=== PATIENT | female | born 1960 | race Caucasian/White ===

== ENCOUNTER → 2017-02-07 | Outpatient (POV) | LOC: OUTPT 00:01 | PROVIDERS: ATTEND Otolaryngology | DX: H91.90 Unspecified hearing loss, unspecified ear (principal) | CPT/HCPCS: 92557; 92567 ==

== ENCOUNTER 2017-06-19 10:11 | Emergency (ER) ==
[2017-06-19 10:20] VITALS: TEMP 98.3; BMI 29.0
[2017-06-19 10:29] VITALS: BP 143/88
[2017-06-19] MEDS ORDERED: EYE-STREAM OP STA (10:34)
[2017-06-19] MEDS ORDERED: FLUORETS OP STA (10:34)
[2017-06-19] MEDS ORDERED: TETRACAINE 0.5% OPTH SOL OP STA (10:35)
[2017-06-19] MEDS ORDERED: TETRACAINE 0.5% UNIT-DOSE OP ONE (10:44)
[2017-06-19] MEDS ORDERED: TETRACAINE 0.5% UNIT-DOSE OP STA (10:56)
[2017-06-19] MEDS ORDERED: TOBREX 0.3% OP STA (10:58)
--- NOTE | 2017-06-19 10:58 | ED.PDOC ---
General ED Provider: Dr. ARIC RIBEIRO Chief Complaint: Eye Problem Stated Complaint: EYE PAIN F/B SENSATION Time Seen by Physician: 10:56 Mode of Arrival: Walk-In Information Source: Patient Exam Limitations: No limitations Primary Care Provider: NASRIN ALDRIDGE Nursing and Triage Documentation Reviewed and Agree: Yes EENT Complaint Exam - Eye Complaint/Exam Onset/Duration: 1 DAY AGO Symptoms Are: Still present Timing: Constant Initial Severity: Mild Current Severity: Mild Location: Left Character: Reports: Dull Aggravating: Reports: Light Alleviating: Reports: None Associated Signs and Symptoms: Reports: Photophobia, Clear drainage. Denies: Purulent drainage, Vision impairment, Fever, Swelling Eye Surgical History: Reports: None Penetrating Injury Risk Factors: None Globe Rupture Risk Factors: None Acute Glaucoma Risk Factors: None Optic Artery Occlusion Risk Factors: None Visual Acuity Right Eye: 20/20 with glasses Visual Acuity Left Eye: 20/20 with glasses Visual Field: Normal Extraocular Movement: Normal Orbit Findings: Normal Globe Findings: Intact Lid Findings: Normal Corneal Findings: Clear Fluorescein Uptake: Yes (12 TO 6 OCLOCK) Fundi: Normal Differential Diagnoses: Corneal Abrasion Review of Systems - Review Of Systems Constitutional: Reports: No symptoms Eyes: Reports: Pain (EYE RIGHT) Ears, Nose, Mouth, Throat: Reports: No symptoms Respiratory: Reports: No symptoms Cardiac: Reports: No symptoms GI: Reports: No symptoms : Reports: No symptoms Musculoskeletal: Reports: No symptoms Skin: Reports: No symptoms Neurological: Reports: No symptoms Endocrine: Reports: No symptoms Hematologic/Lymphatic: Reports: No symptoms All Other Systems: Reviewed and Negative Past Medical History - Past Medical History Previously Healthy: Yes Endocrine: Reports: None Cardiovascular: Reports: None Respiratory: Reports: None Hematological: Reports: None Gastrointestinal: Reports: None Genitourinary: Reports: None Neuro/Psych: Reports: None Musculoskeletal: Reports: None Cancer: Reports: None Last Menstrual Period: 6 years - Surgical History General Surgical History: Reports: None - Family History Family History: Reports: None - Social History Smoking Status: Never smoker Hx Substance Use: No Alcohol Screening: Occasionally - Immunizations Tetanus Shot up to Date: Yes Physical Exam - Physical Exam Appearance: Well-appearing, No pain distress, Well-nourished Eyes: GUERLINE, EOMI (CORNEAL BRASION NOTED KLEFT SIDE LID EVERSION NO F/B) ENT: Ears normal, Nose normal, Oropharynx normal Respiratory: Airway patent, Breath sounds clear, Breath sounds equal, Respirations nonlabored Cardiovascular: RRR, Pulses normal, No rub, No murmur GI/: Soft, Nontender, No masses, Bowel sounds normal, No Organomegaly Musculoskeletal: Normal strength, ROM intact, No edema, No calf tenderness Skin: Warm, Dry, Normal color Neurological: Sensation intact, Motor intact, Reflexes intact, Cranial nerves intact, Alert, Oriented Psychiatric: Affect appropriate, Mood appropriate Critical Care Note - Critical Care Note Total Time (mins): 0 Course - Course Orders, Labs, Meds: Orders Category Date Time Status Balanced Salt Solution [Eye-Stream] MEDS 06/19/17 10:34 Discontinued 1 bottle OP ONCE STA Fluorescein Sodium [Fluorets] MEDS 06/19/17 10:34 Discontinued 1 strip OP ONCE STA Tetracaine HCl [Tetracaine 0.5% Opth Arlene] MEDS 06/19/17 10:35 Discontinued 2 drop OP ONCE STA Tetracaine HCl/Pf [Tetracaine 0.5% Unit-Dose] MEDS 06/19/17 10:44 Discontinued 1 drop OP .STK-MED ONE Medications Discontinued Medications Generic Name Dose Route Start Last Admin Trade Name Freq PRN Reason Stop Dose Admin Eye Irrigation Solution 1 bottle 06/19/17 10:34 Eye-Stream OP 06/19/17 10:35 ONCE STA Fluorescein Sodium 1 strip 06/19/17 10:34 Fluorets OP 06/19/17 10:35 ONCE STA Tetracaine HCl 2 drop 06/19/17 10:35 Tetracaine 0.5% Opth Arlene OP 06/19/17 10:36 ONCE STA Vital Signs: Temp Pulse Resp BP Pulse Ox 06/19/17 10:27 143/88 H 06/19/17 10:11 98.3 F 82 18 162/103 H 95 Departure - Departure Time of Disposition: 10:59 (DOCTOR BRUSH WILL SEE PT 1 PM) Disposition: HOME SELF-CARE Discharge Problem: Corneal abrasion, left Qualifiers: Encounter type: initial encounter Qualified Code(s): S05.02XA - Injury of conjunctiva and corneal abrasion without foreign body, left eye, initial encounter Instructions: Corneal Abrasion (ED) Condition: Good Pt referred to PMD for follow-up: Yes (G BRUSH 1 PM) Additional Instructions: Please call your Family Physician as soon as possible to schedule a follow-up appointment. Allergies/Adverse Reactions: Allergies No Known Allergies Allergy (Unverified 06/19/17 10:21) Home Medications: Ambulatory Orders Citalopram Hydrobromide [Celexa] 40 mg PO DAILY #1 tab-cap 02/07/17 Alprazolam 1 ea PO DAILY 06/19/17 Aspirin [Aspirin EC] 325 mg PO DAILYWM 06/19/17 Atorvastatin Calcium 40 mg PO DAILY 06/19/17 Carvedilol 6.25 mg PO BID 06/19/17 Multivitamin 1 each PO DAILY 06/19/17 Tramadol HCl 50 mg PO BID 06/19/17 Trazodone HCl 1 ea PO DAILY 06/19/17 Disposition Discussed With: Patient, Family
== END 2017-06-19 11:22 | disposition home or self-care (01) ==
LOC: ED 10:11
DX: S05.02XA Injury of conjunctiva and corneal abrasion without foreign body, left eye, initial encounter (principal)
CPT/HCPCS: 99282

== ENCOUNTER 2017-06-21 12:21 | Outpatient (CLI) ==
[2017-06-21 12:48] LABS: BASOPHILS # (AUTO) 0.1 K/uL (0-0.2); EOSINOPHILS # (AUTO) 0.4 K/ul (0.0-0.7); EOSINOPHILS % (AUTO) 6.4 % (0.0-7.0); HEMOGLOBIN 13.9 g/dl (12.0-16.0); IMMATURE GRANULOCYTE % (AUTO) 0.3 % (0.0-5.0); LYMPHOCYTES % (AUTO) 35.1 (10.0-50.0); MEAN CORPUSCULAR HEMOGLOBIN 34.2 pg (27.0-31.0); MEAN CORPUSCULAR HGB CONC 33.9 (31.8-35.4); MEAN CORPUSCULAR VOLUME 100.7 fl (81.0-99.0); MONOCYTES # (AUTO) 0.6 K/uL (0.4-2.0); MONOCYTES % (AUTO) 9.9 (0-10); NEUTROPHILS # (AUTO) 2.7 K/ul (2.0-6.9); NEUTROPHILS % (AUTO) 47.3; PLATELET COUNT 366 10^3/uL (140-440); RED BLOOD COUNT 4.07 10^6/ul (4.20-5.40); WHITE BLOOD COUNT 5.78 K/ul (4.6-10.2)
[2017-06-21 13:26] LABS: ALBUMIN 3.4 g/dL (3.4-5.0); ALBUMIN/GLOBULIN RATIO 0.92; ANION GAP 12.1; BILIRUBIN,TOTAL 0.85 mg/dL (0.00-1.20); BUN/CREATININE RATIO 8.13; CALCIUM 9.6 mg/dL (8.2-10.2); CHOL/HDL RATIO 4.5 (4.5-5.5); CREATININE 0.86 mg/dL (0.60-1.30); POTASSIUM 4.1 mmol/L (3.5-5.10); TOTAL PROTEIN 7.1 g/dL (6.4-8.2)
== END 2017-06-21 12:22 | disposition home or self-care (01) ==
LOC: LAB 12:21
PROVIDERS: ATTEND Internal Medicine
DX: E78.5 Hyperlipidemia, unspecified (principal); I10 Essential (primary) hypertension; E55.9 Vitamin D deficiency, unspecified; K21.9 Gastro-esophageal reflux disease without esophagitis
CPT/HCPCS: 36415; 80053; 80061; 82607; 83036; 84443; 85025

== ENCOUNTER 2018-11-27 11:40 | Outpatient (CLI) ==
[2018-08-27 10:19] VITALS: BMI 27.8
--- NOTE | 2018-11-27 12:45 | DI ---
EXAM: PA and lateral views of the chest HISTORY: Chest pain COMPARISON: None FINDINGS: The cardiomediastinal silhouette is normal. There is no pneumothorax or pleural effusion. There is no consolidation, nodule or mass. The osseous structures demonstrate degenerative disease . IMPRESSION: No acute cardiopulmonary process
--- NOTE | 2018-11-27 12:45 | DI ---
EXAM: LEFT HIP, 2 VIEWS HISTORY: Hip pain FINDINGS: No fracture or joint dislocation. Articular cartilage width is within normal limits for age. Bone density and soft tissues are within normal limits. IMPRESSION: Within normal limits.
--- NOTE | 2018-11-27 13:02 | DI ---
EXAM: Thoracic spine three views HISTORY: Back pain FINDINGS: There is at least mild scoliosis convex to the left centered at the mid to upper thoracic spine. Diffuse degenerative disc disease is mild to moderate. There is no obvious fracture or signi ficant loss of vertebral body height. IMPRESSION: 1. Degenerative disc disease with scoliosis.
--- NOTE | 2018-11-27 13:03 | DI ---
EXAM: Five views of the lumbar spine HISTORY: Neck pain. COMPARISON: None FINDINGS: There is no acute compression fracture or subluxation. There is no lytic or blastic lesion . Trace anterior disc osteophytes are present. The facets and posterior processes are normal. Neur al foramen are patent. The odontoid process is unremarkable. Soft tissues are unremarkable. IMPRESSION: 1. No acute compression fracture or subluxation. 2. Minimal degenerative disease of the cervical spine.
== END 2018-11-27 11:41 | disposition home or self-care (01) ==
LOC: RAD 11:40
PROVIDERS: ATTEND Internal Medicine
DX: M54.9 Dorsalgia, unspecified (principal); M54.2 Cervicalgia; M25.552 Pain in left hip; E78.5 Hyperlipidemia, unspecified; I10 Essential (primary) hypertension; E55.9 Vitamin D deficiency, unspecified; K21.9 Gastro-esophageal reflux disease without esophagitis
CPT/HCPCS: 36415; 80053; 80061; 83036; 84443; 85025

== ENCOUNTER 2018-12-04 10:18 | Outpatient (CLI) ==
[2018-08-27 10:19] VITALS: BMI 27.8
--- NOTE | 2018-12-05 09:25 | MAMMO ---
EXAM: Bilateral digital screening mammogram (2-D and 3-D) History: Screening Comparison: Bilateral mammogram 08/24/2016 Findings: MLO and CC views of bilateral breasts demonstrate scattered fibroglandular breast parenchy ma. There are no dominant masses, no suspicious microcalcifications and no architectural distortions . CAD was reviewed by the radiologist. Tomosynthesis was performed. Impression: Stable negative mammogram. Recommend followup routine screening mammography in 1 year. BIRADS 1, negative
== END 2018-12-04 10:19 | disposition home or self-care (01) ==
LOC: RAD 10:18
PROVIDERS: ATTEND Internal Medicine
DX: Z12.31 Encounter for screening mammogram for malignant neoplasm of breast (principal)